=== PATIENT | male | born 1995 | race Caucasian/White ===

== ENCOUNTER 2017-08-04 08:30 | Emergency (ER) | payer OTHER ==
[~2017-08-04] VITALS: Ht 167.6 cm; Wt 61.9 kg
[~2017-08-04 08:30] MED LIST: ACET-1256 PO; ESCI10TA17 PO
[2017-08-04 08:36] VITALS: Ht 167.6 cm; Wt 61.9 kg
[2017-08-04] MEDS ORDERED: ONDANSETRON INJ 2 MG/ML 2 ML VIAL IV STA ×2 (08:48→10:17)
[2017-08-04] MEDS ORDERED: SODIUM CHLORIDE 0.9% 1000ML 1,000 ML IV STA (08:48)
[2017-08-04] MEDS ORDERED: MoRPHine SULFATE 4 MG/ML 1 ML CARP\\VIAL IV STA (08:48)
[2017-08-04] MEDS ORDERED: PRLSR20 PO (09:06)
[2017-08-04 09:09] LABS: HEMATOCRIT 46.3 % (42-52); MEAN CORPUSCULAR HEMOGLOBIN 31.2 pg (25-34); MEAN CORPUSCULAR HGB CONC 35.9 g/dl (32-36); MEAN PLATELET VOLUME 10.1 fL (7.4-10.4); PLATELET COUNT 276 K/uL (130-400); RED BLOOD COUNT 5.32 M/uL (4.7-6.1); WHITE BLOOD COUNT 13.92 K/uL (4.8-10.8)
[2017-08-04 09:29] LABS: INR 1.1 (0.9-1.1); PROTHROMBIN TIME (PATIENT) 11.5 SECONDS (9.0-12.0)
[2017-08-04 09:39] LABS: BUN/CREATININE RATIO 16.1 (10-20); CALCIUM 9.6 mg/dl (8.5-10.1)
[2017-08-04 09:53] LABS: COMPLETE YES; ECHINOCYTES 1+; LYMPH ABS # 1.59 K/uL (1.2-3.4); LYMPHOCYTE % 11.4 %; NEUTROPHILS % 63.2 %; VARIANT LYM ABS # 3.54 K/uL; VARIANT LYMPHOCYTE % 25.4 %
[2017-08-04 09:56] LABS: POTASSIUM 3.7 mmol/L (3.5-5.1)
[2017-08-04] MEDS ORDERED: LACTATED RINGER'S 1000ML 1,000 ML IV ONE (10:30)
[2017-08-04 10:40] LABS: URINE APPEARANCE CLEAR (CLEAR); URINE BILIRUBIN NEG (NEG); URINE COLOR DK YELLOW; URINE NITRITE NEG (NEG); URINE SPECIFIC GRAVITY 1.029 (1.000-1.030); UROBILINOGEN NEG (NEG)
[2017-08-04 10:53] LABS: MANUAL MICROSCOPIC REQUIRED? NO; REVIEW REQ? NO
[2017-08-04 11:15] LABS: BENZODIAZEPINE, URINE POS (NEG); COCAINE,URINE NEG (NEG); PHENCYCLIDINE, URINE NEG (NEG)
[2017-08-04] MEDS ORDERED: OMEP20CA9 PO (12:33)
[2017-08-04] MEDS ORDERED: ONDA4TAB10 SL (12:33)
[2017-08-04 12:48] VITALS: BP 108/78; PULSE 91; O2SAT 97
--- NOTE | 2017-08-04 16:17 | EMERGENCY ROOM VISIT NOTE ---
ED Visit Note First contact with patient: 08:39 Chief Complaint: Vomiting and abdominal pain. History of Present Illness: Mr. Christy is a 21-year-old male who ambulates into the ED accompanied by his mother complaining of vomiting and abdominal pain. Historically mother reports patient has been abusing marijuana for the last few months. She reports he has been losing weight, he has not been eating. She also reports that he has gone off his antidepressant medications. She also reports he has been having intermittent GERD-like symptoms and he has been using his father's Prilosec with minimal relief of his discomfort. Mother reports last evening patient started vomiting and vomited throughout the night; she reports 6-7 times an hour. She reports his vomiting was bilious and did not see any blood. Patient agrees with this statement. He also reports he has been having severe cramping in his abdomen. He places this discomfort over the central portion of the abdomen involving all quadrants. He rates his discomfort 10/10. The pain is nonradiating. He has not identified any aggravating or alleviating factors related to the pain. He has not taken any medication for pain prior to arrival at the hospital. Associated with his pain is his vomiting and he reports he has been having chills with vomiting. He denies recent head trauma, headache, skin eruptions, skin color changes, all abnormal neurological symptoms, neck pain, neck stiffness, back pain, chest pain , shortness of breath, palpitations, hematemesis, hematochezia, urinary symptoms , hematuria, melena. Review of Systems: As noted above in history of present illness. All body systems were reviewed and found to be negative as noted above. Past Medical History: As previously noted. Current Medications: Prilosec. Allergies to Medications: Mother denies. Social History: Patient is currently employed; he denies tobacco use. Physical Examination: Vital Signs: Date Time Temp Pulse Resp B/P (MAP) Pulse Ox O2 Delivery O2 Flow Rate FiO2 08/04/17 12:48 91 15 108/78 97 08/04/17 12:46 92 08/04/17 11:47 87 106/42 97 08/04/17 10:26 105 15 115/67 97 Room Air 08/04/17 09:21 57 15 132/69 98 Room Air 08/04/17 08:56 71 08/04/17 08:36 74 18 133/74 96 Room Air GENERAL: 21-year-old male in mild to moderate distress due to pain, nontoxic- appearing, afebrile and hemodynamically stable. NEUROLOGICAL: Opens eyes to verbal stimuli, alert and oriented to person, place and time. Answering questions appropriately and following commands. Good hand eye coordination. No focal motor or sensory deficits. SKIN: Warm, dry and pink. No soft tissue eruptions or trauma noted. HEENT: Atraumatic and normocephalic. PERRLA. EOMI without nystagmus. Sclera white and conjunctiva pink. No drainage from naris. Oral cavity moist and pink. Pharynx is nonerythematous or edematous. Speech normal. Airway patent. No lymphadenopathy. Trachea midline. No jugular venous distention. BACK: No tenderness over the bony spine. No CVA tenderness. THORAX: Lungs sounds are clear to auscultation and equal bilaterally with symmetrical chest wall. No wheezing, rales or rhonchi. No crepitus, tenderness , subcutaneous air or deformities noted. HEART: Regular rate and rhythm. No gallops, rubs or murmurs are appreciated. ABDOMEN: Flat, soft and nontender. Positive bowel sounds in all quadrants. No guarding, rigidity or organomegaly. EXTREMITIES: Moves all extremities well on command and with purpose. All distal neurovascular statuses are intact and equal bilaterally. ED Course: Patient is assessed as noted above. Patient's medication list was reviewed. Laboratory Testing: Test 08/04/17 08:45 08/04/17 10:15 Range/Units White Blood Count 13.92 4.8-10.8 K/uL Red Blood Count 5.32 4.7-6.1 M/uL Hemoglobin 16.6 14.0-18.0 g/dL Hematocrit 46.3 42-52 % Mean Corpuscular Volume 87.0 80-100 fL Mean Corpuscular Hemoglobin 31.2 25-34 pg Mean Corpuscular Hemoglobin Concent 35.9 32-36 g/dl Platelet Count 276 130-400 K/uL Mean Platelet Volume 10.1 7.4-10.4 fL RDW Standard Deviation 41.0 36.4-46.3 fL RDW Coefficient of Variation 12.7 11.5-14.5 % Neutrophils % (Manual) 63.2 % Lymphocytes % (Manual) 11.4 % Variant Lymphocytes % (manual) 25.4 % Neutrophils # (Manual) 8.80 1.4-6.5 K/uL Total Absolute Neutrophils 8.80 1.4-6.5 K/uL Lymphocytes # (Manual) 1.59 1.2-3.4 K/uL Absolute Variant Lymphocytes 3.54 K/uL Total Absolute Lymphocytes 5.12 1.2-3.4 K/uL Echinocytes 1+ Prothrombin Time 11.5 9.0-12.0 SECONDS Prothromb Time International Ratio 1.1 0.9-1.1 Sodium Level 139 136-145 mmol/L Potassium Level 3.7 3.5-5.1 mmol/L Chloride Level 101 98-107 mmol/L Carbon Dioxide Level 23 21-32 mmol/L Anion Gap 15.0 3-11 mmol/L Blood Urea Nitrogen 16 7-18 mg/dl Creatinine 1.00 0.60-1.40 mg/dl Est Creatinine Clear Calc Drug Dose 103.2 ml/min Estimated GFR () 125.0 Estimated GFR (Non- 107.9 BUN/Creatinine Ratio 16.1 10-20 Random Glucose 88 70-99 mg/dl Calcium Level 9.6 8.5-10.1 mg/dl Total Bilirubin 1.2 0.2-1 mg/dl Direct Bilirubin 0.3 0-0.2 mg/dl Aspartate Amino Transf (AST/SGOT) 23 15-37 U/L Alanine Aminotransferase (ALT/SGPT) 22 12-78 U/L Alkaline Phosphatase 62 45-117 U/L Total Protein 7.8 6.4-8.2 gm/dl Albumin 4.7 3.4-5.0 gm/dl Lipase 70 73-393 U/L Urine Color DK YELLOW Urine Appearance CLEAR CLEAR Urine pH 5.0 4.5-7.5 Urine Specific [place] 1.029 1.000-1.030 Urine Protein TRACE NEG Urine Glucose (UA) NEG NEG Urine Ketones 4+ NEG Urine Occult Blood NEG NEG Urine Nitrite NEG NEG Urine Bilirubin NEG NEG Urine Urobilinogen NEG NEG Urine Leukocyte Esterase NEG NEG Urine WBC (Auto) 1-5 0-5 /hpf Urine RBC (Auto) 0-4 0-4 /hpf Urine Hyaline Casts (Auto) 10-30 0-5 /lpf Urine Epithelial Cells (Auto) 10-20 0-5 /lpf Urine Bacteria (Auto) NEG NEG Urine Opiates Screen NEG NEG Urine Methadone, Qualitative NEG NEG Urine Barbiturates NEG NEG Urine Phencyclidine (PCP) Level NEG NEG Ur Amphetamine/Methamphetamine NEG NEG MDMA (Ecstasy) Screen NEG NEG Urine Benzodiazepines Screen POS NEG Urine Cocaine Metabolite NEG NEG Urine Marijuana (THC) POS NEG Patient was hydrated with normal saline and lactated Ringer's and received a total of 8 mg of Zofran IV and oh grams of morphine IV for his symptoms. Patient was reassessed multiple times during his stay in the emergency department. On his reassessment after his toxicology screen returned positive for benzodiazepine was positive he did report that he was using Valium prescribed another person for ongoing back pain. I did talk to the patient about possible drug rehabilitation; he informed me that he was going to stop his marijuana use at the end of August on his own and did not need to go to rehabilitation. Patient's case was reviewed with Dr. Rios; we agreed on diagnostic approach, treatment, disposition and plan. A lia mother were educated about today's findings and instructed on his treatment plan; he verbalized understanding and agreement with this plan. Clinical Impression: Vomiting. Abdominal pain. Marijuana abuse. Valium abuse. Dehydration. Decision-Making: Initially my differential diagnosis I considered polysubstance withdrawal, polysubstance overdose, hepatitis, pancreatitis, and other causes. Patient's blood pressure: Normal Blood pressure disposition: No action required. Disposition: Prior to departure he was reassessed and subjectively reported he was feeling much better. He rated his abdominal pain 3/10 and reported resolution of all nauseous. Plan: Patient was encouraged to stop marijuana and Valium abuse. Patient is encouraged to stay well-hydrated. Patient was prescribed Zofran 4 mg every 6 hours and his home prescription of omeprazole 20 mg once a day. Patient is encouraged to eat multiple small meals versus one meal. Mother was encouraged to have his son followed up with his family physician for recheck in 2-4 days. Patient mother were encouraged return the ED for worsening pain, return of vomiting, bloody vomitus, fevers or any new/concerning symptoms.
[2017-08-07 13:51] LABS: HYDROXYETHYLFLURAZEPAM CONF NEGATIVE NG/ML (CUTOFF=50); HYDROXYMIDAZOLAM NEGATIVE NG/ML (CUTOFF=50); HYDROXYTRIAZOLAM CONF NEGATIVE NG/ML (CUTOFF=50); TEMAZEPAM CONF NEGATIVE NG/ML (CUTOFF=50)
== END 2017-08-04 12:49 | disposition home or self-care (01) ==
LOC: C.EDB 08:31 → C.EDA 12:49
DX: R11.10 Vomiting, unspecified (principal); R10.9 Unspecified abdominal pain; F12.10 Cannabis abuse, uncomplicated; F13.10 Sedative, hypnotic or anxiolytic abuse, uncomplicated; E86.0 Dehydration